=== PATIENT | female | born 1945 | race Caucasian/White ===

== ENCOUNTER 2016-06-02 18:01 | Emergency (ER) | payer OTHER, MEDICARE ==
[2016-06-02 18:16] VITALS: BP 111/59; PULSE 65; TEMP 97.9; BMI 19.3
--- NOTE | 2016-06-02 18:38 | PDOC ---
History of Present Illness <Albina Kim Nicolasa - Last Filed: 06/02/16 18:36> - General History Source: Patient Exam Limitations: No Limitations - History of Present Illness Initial Comments: 06/02/16 18:38 The patient is a 70 year old female, with no significant past medical history who presents to the emergency department with coughing and difficulty breathing for about 10 days. She reports her cough is occasionally productive and constant. Patient feels like she might have bronchitis. She notes also feeling weak and lacking energy. She denies chest pain. She denies fever, chills, headache and dizziness. Allergies: Antibiotics Past surgical history: denies Social history: Former smoker (10 years ago). Denies drug and EtOH use. PCP: . <Reji Rossi - Last Filed: 06/02/16 21:01> - General Chief Complaint: Respiratory Stated Complaint: "i HAVE BRONCHITIS" Time Seen by Provider: 06/02/16 18:04 Past History - Past Medical History Other medical history: pt denies - Psycho/Social/Smoking Cessation Hx Anxiety: No Suicidal Ideation: No Smoking History: Never smoked Have you smoked in the past 12 months: No Information on smoking cessation initiated: No Hx Alcohol Use: No Drug/Substance Use Hx: No Substance Use Type: None <Albina Kim - Last Filed: 06/02/16 18:36> <Reji Rossi - Last Filed: 06/02/16 21:01> - Past Medical History Allergies/Adverse Reactions: Allergies Allergy/AdvReac Type Severity Reaction Status Date / Time antibiotics Allergy Intermediate Low Blood Uncoded 06/02/16 18:12 Pressure Home Medications: Ambulatory Orders NK [No Known Home Medication] 05/07/14 Review of Systems - Review of Systems Able to Perform ROS?: Yes Constitutional: No: Symptoms Reported HEENTM: No: Symptoms Reported Respiratory: Yes: Cough Cardiac (ROS): No: Symptoms Reported ABD/GI: No: Symptoms Reported : No: Symptoms Reported Musculoskeletal: No: Symptoms Reported Integumentary: No: Symptoms Reported Neurological: No: Symptoms reported <Reji Rossi - Last Filed: 06/02/16 21:01> *Physical Exam - Vital Signs Last Vital Signs Temp Pulse Resp BP Pulse Ox 97.9 F 65 18 111/59 100 02/02/17 18:13 06/02/16 18:13 06/02/16 18:13 06/02/16 18:13 06/02/16 18:13 <Albina Kim - Last Filed: 06/02/16 18:36> - Vital Signs Last Vital Signs Temp Pulse Resp BP Pulse Ox 97.9 F 65 18 111/59 100 06/02/16 18:13 06/02/16 18:13 06/02/16 18:13 06/02/16 18:13 06/02/16 18:13 - Physical Exam General Appearance: Yes: Nourished, Appropriately Dressed HEENT: positive: EOMI, GWEN, Normal ENT Inspection Neck: positive: Supple Respiratory/Chest: positive: Lungs Clear, Normal Breath Sounds Cardiovascular: positive: Regular Rhythm, Regular Rate Gastrointestinal/Abdominal: positive: Normal Bowel Sounds, Flat, Soft. negative : Tender Musculoskeletal: positive: Normal Inspection Extremity: positive: Normal Capillary Refill, Normal Inspection, Normal Range of Motion Integumentary: positive: Normal Color, Dry, Warm Neurologic: positive: scaffold worker II-XII NML intact, Fully Oriented, Alert, Normal Mood/ Affect, Normal Response, Motor Strength 5/5 <Reji Rossi - Last Filed: 06/02/16 21:01> ED Treatment Course - RADIOLOGY Radiograph Interpretation: 06/02/16 21:01 CHEST X-RAY impressions reported by : Normal study. <Reji Rossi - Last Filed: 06/02/16 21:01> Medical Decision Making - Medical Decision Making 06/02/16 18:51 70 y/o F with no PMHx arrives with an ongoing cough for 10 days. She reports her cough is sometimes productive. She relates also feeling weak and having a lack of energy. She denies any recent fever, chills, or illness. I will check x- rays of her chest to rule out pneumonia. Patient will be endorsed to . <Reji Rossi - Last Filed: 06/02/16 21:01> *DC/Admit/Observation/Transfer <Albina Kim - Last Filed: 06/02/16 18:36> - Attestations Scribe Attestion: 06/02/16 18:39 Documentation prepared by Reji Rossi, acting as product manager medical device for Albina Kim MD. <Reji Rossi - Last Filed: 06/02/16 21:01> Diagnosis at time of Disposition: Cough - Discharge Dispostion Disposition: HOME Condition at time of disposition: Stable - Patient Instructions Additional Instructions: PLENTY OF FLUIDS (WATER/GATORADE) MOTRIN/TYLENOL FOR FEVER OR PAIN REST SEE YOUR DOCTOR TOMORROW RETURN IF FEVER, VOMITING, SHORTNESS OF BREATH
--- NOTE | 2016-06-02 20:01 | PDOC ---
*Physical Exam - Vital Signs Last Vital Signs Temp Pulse Resp BP Pulse Ox 97.9 F 65 18 111/59 100 06/02/16 18:13 06/02/16 18:13 06/02/16 18:13 06/02/16 18:13 06/02/16 18:13 - Physical Exam General Appearance: Yes: Nourished, Appropriately Dressed. No: Apparent Distress HEENT: positive: Normal ENT Inspection Neck: positive: Supple Respiratory/Chest: positive: Lungs Clear, Normal Breath Sounds, Other (cough triggered w/ forced exhalation). negative: Chest Tender, Respiratory Distress Progress Note - Progress Note Progress Note: likely reactive airway component will follow up w/ pmd cxr normal (my read) *DC/Admit/Observation/Transfer Diagnosis at time of Disposition: Cough - Discharge Dispostion Disposition: HOME Condition at time of disposition: Stable - Patient Instructions Additional Instructions: PLENTY OF FLUIDS (WATER/GATORADE) MOTRIN/TYLENOL FOR FEVER OR PAIN REST SEE YOUR DOCTOR TOMORROW RETURN IF FEVER, VOMITING, SHORTNESS OF BREATH
== END 2016-06-02 20:05 | disposition home or self-care (01) ==
LOC: FER 18:01
DX: R05 Cough (principal)
CPT/HCPCS: 71020-TC; 99281-25

== ENCOUNTER 2019-02-26 09:48 | Emergency (ER) | payer MEDICARE, OTHER ==
[2019-02-26 09:50] VITALS: BP 125/63; PULSE 62; TEMP 98; BMI 20.7
--- NOTE | 2019-02-26 09:51 | PDOC ---
History of Present Illness - General Chief Complaint: Injury Stated Complaint: HEAD INJURY Time Seen by Provider: 02/26/19 09:51 - History of Present Illness Initial Comments: 02/26/19 10:39 73y/o F with hx of recent URI presents to the ED with a headache. She was sitting in a wooden reclining chair when it folded and the back hit her head. She did not lose consciousness afterwards, and applied an icepack. She reports a sensation of increased fatigue afterwards and went to sleep. She woke up this morning feeling nauseous and lightheaded. Her pain is 4/10 in the back and front of her head. Endorses "vision change", fatigue. She denies, vomiting, numbness, paresthesias, fevers, chills. Past History - Past Medical History Allergies/Adverse Reactions: Allergies Allergy/AdvReac Type Severity Reaction Status Date / Time Unable to Assess AdvReac Unknown Unverified 02/26/19 10:33 antibiotics Allergy Intermediate Low Blood Uncoded 02/26/19 09:49 Pressure Home Medications: Ambulatory Orders Ascorbate Calcium [Vitamin C] 500 mg PO DAILY 02/26/19 Cholecalciferol (Vitamin D3) [Vitamin D] 2,000 unit PO DAILY 02/26/19 L.acidoph,Paracasei, B.lactis [Probiotic] 1 each PO DAILY 02/26/19 Vitamin B Complex 1 each PO DAILY 02/26/19 COPD: No [facility] CHRONIC FATIGUE - Psycho Social/Smoking Cessation Hx Smoking History: Former smoker Have you smoked in the past 12 months: No Information on smoking cessation initiated: No Hx Alcohol Use: No Drug/Substance Use Hx: No Substance Use Type: None Review of Systems - Review of Systems Constitutional: No: Chills, Fever HEENTM: No: Eye Pain, Blurred Vision Respiratory: Yes: Cough. No: Productive cough Cardiac (ROS): Yes: Lightheadedness. No: Chest Pain ABD/GI: No: Abdominal Distended, Difficulty Swallowing : No: Burning, Dysuria Musculoskeletal: No: Back Pain, Muscle Pain Integumentary: No: Bruising, Change in Color Neurological: Yes: Headache. No: Numbness, Paresthesia Psychiatric: Yes: Anxiety *Physical Exam - Vital Signs Last Vital Signs Temp Pulse Resp BP Pulse Ox 98 F 62 18 125/63 100 02/26/19 09:48 02/26/19 09:48 02/26/19 09:48 02/26/19 09:48 02/26/19 09:48 - Physical Exam Comments: 02/26/19 10:52 PE: GENERAL: Awake, alert, and fully oriented, in no acute distress HEAD: No signs of trauma, normocephalic, atraumatic EYES: PERRLA, EOMI, sclera anicteric, conjunctiva clear ENT: Auricles normal inspection, hearing grossly normal, nares patent, oropharynx clear without exudates. Moist mucosa NECK: Normal ROM, supple, palpable submandibular lymph nodes, JVD, or masses LUNGS: No distress, speaks full sentences, clear to auscultation bilaterally HEART: Regular rate and rhythm, normal S1 and S2, no murmurs, rubs or gallops, peripheral pulses normal and equal bilaterally. ABDOMEN: Soft, nontender, normoactive bowel sounds. No guarding, no rebound. No masses EXTREMITIES : Normal inspection, Normal range of motion, no edema. No clubbing or cyanosis NEUROLOGICAL: Cranial nerves II through XII grossly intact. Normal speech, normal gait, no focal sensorimotor deficits SKIN: Warm, Dry, normal turgor, no rashes or lesions noted ED Treatment Course - LABORATORY CBC & Chemistry Diagram: 02/26/19 10:40 02/26/19 10:40 Medical Decision Making - Medical Decision Making 02/26/19 10:57 73y/o F with hx of recent URI presents to the ED with a headache.\\ cbc, cmp, non-contrast head ct. iv normal saline. Pt offered Tylenol for pain but denied 02/26/19 12:[address] moderate volume loss mainly in the high convexity without CT evidence of acute intracranial pathology -Labs unremarkable -Pt still feeling fatigued 02/26/19 12:41 Pt. instructed to follow up with PCP if symptoms not improved - will discharge once fluid bolus is done. Discharge - Discharge Information Problems reviewed: Yes Clinical Impression/Diagnosis: Headache, post-traumatic, acute Qualifiers: Intractability: not intractable Qualified Code(s): G44.319 - Acute post- traumatic headache, not intractable Condition: Stable Disposition: HOME - Admission No - Follow up/Referral - Patient Discharge Instructions Patient Printed Discharge Instructions: DI for Post-traumatic Headache Additional Instructions: You were seen in the ER for headache after hitting your head on the back of a chair Your head CT did not show any brain bleed. Follow up with your primary care provider in the next few days especially if you continue to feel tired. RETURN to the ER if you develop increased pain that does not resolve with using tylenol or motrin. Nausea, vomiting, blurry or worsening vision. - Post Discharge Activity
--- NOTE | 2019-02-26 10:13 | PDOC ---
Attending Attestation - Resident Resident Name: Ce Mays - ED Attending Attestation I have performed the following: I have examined & evaluated the patient, The case was reviewed & discussed with the resident, I agree w/resident's findings & plan, Exceptions are as noted - HPI HPI: 02/26/19 10:11 73y F with no significant pmhx presents sp head injury yesterday,Patient states that she was sitting down on a wooden recliner, When she sat on the wrong place and the wooden back swung forward and struck her in the head. Patient has been feeling a mild headache as well as increased fatigue/malaise since yesterday. Patient also endorses mild nausea and lightheadedness. The patient Denies any neck pain, numbness, tingling, weakness, double vision, Back pain chest pain shortness of breath abdominal pain diarrhea dysuria. The patient does endorse having approximately 10 days of a URI that started off with fevers, Nasal congestion cough, her symptoms have been gradually improving since onset. PMD : [facility] Physical Exam: GENERAL: The patient is awake, alert, and fully oriented, Nontoxic - in no acute distress. HEAD: Normocephalic, atraumatic. EYES: extraocular movements intact, Visual mas intact by confrontation, PERRL , sclera anicteric, conjunctiva clear. ENT: Normal voice, Moist mucous membranes. NECK: Normal range of motion, supple, No focal midline tenderness LUNGS: Breath sounds equal, clear to auscultation bilaterally. No wheezes, no rhonchi, no rales. HEART: Regular rate and rhythm, normal S1 and S2 without murmur, rub or gallop. ABDOMEN: Soft, nontender, No guarding, no rebound. No CVA tenderness EXTREMITIES: Normal range of motion, no edema. NEUROLOGICAL: No facial assymetry, Normal speech, movin gall 4 extremities spontaneously and symmetrically PSYCH: Normal mood, normal affect. SKIN: Warm, Dry, normal turgor, Suspect possible concussion Will obtain CT To rule out subdural will obtain basic blood work, Tylenol, Zofran For symptomatic relief will reassess - Physicial Exam PE: 02/26/19 12:32 see above - Medical Decision Making 02/26/19 12:[address] head without signs of acute findings will dc with supportive care and pmd fu return precautiosn were discussed
[2019-02-26] MEDS ORDERED: ACETAMINOPHEN 1000 MG/100 ML VIAL (NON FORMULARY) IVPB ONE (10:20)
[2019-02-26] MEDS ORDERED: SODIUM CHLORIDE 0.9% 500 ML INFUS.BAG IV ONE (10:20)
[2019-02-26 10:59] LABS: BASO % 0.8 % (0-2.0); EOS % 0.9 % (0-4.5); HEMATOCRIT 35.7 % (32.4-45.2); HEMOGLOBIN 12.1 GM/dl (10.7-15.3); LYMPH % 29.4 % (8-40); MCH 32.1 pg (25.7-33.7); MCHC 33.9 g/dl (32.0-36.0); MEAN CELL VOLUME 94.7 fl (80-96); MEAN PLT VOLUME 10.2 fl (7.5-11.1); MONO % 7.9 % (3.8-10.2); PLATELET COUNT 242 K/MM3 (134-434); RBC 3.77 M/mm3 (3.60-5.2); RDW 12.4 % (11.6-15.6); WHITE BLOOD COUNT 4.2 K/mm3 (4.0-10.8)
[2019-02-26 11:02] LABS: ADD RBC MORPHOLOGY YES; ALBUMIN 3.8 g/dl (3.4-5.0); BILIRUBIN,TOTAL 0.3 mg/dl (0.2-1); CALCIUM 9.1 mg/dl (8.5-10); CREATININE 0.5 mg/dl (0.55-1.3); POTASSIUM 4.4 mmol/L (3.5-5.1); TOT PROT 6.6 g/dl (6.4-8.2)
[2019-02-26 11:46] LABS: PLATELET ESTIMATE ADEQUATE
== END 2019-02-26 13:10 | disposition home or self-care (01) ==
LOC: FER 09:48
PROC: 3E0337Z Introduction of Electrolytic and Water Balance Substance into Peripheral Vein, Percutaneous Approach (ICD-10-PCS; principal; 2019-02-26)
DX: G44.319 Acute post-traumatic headache, not intractable (principal); Z88.1 Allergy status to other antibiotic agents
CPT/HCPCS: 36415; 70450-TC; 80053; 85025; 99283-25